=== PATIENT | female | born 1955 | race Caucasian/White ===

== ENCOUNTER → 2016-09-26 | Outpatient (CLI) | payer BC ==
[2016-09-26 12:54] LABS: Blood Urea Nitrogen 13 mg/dL (7-17); Non-African American GFR(MDRD) >60 (>60 ml/min/1.73 sqM)
--- NOTE | 2016-09-26 14:03 | CT ---
EXAMINATION TYPE: CT Chest Abd Pelvis w con DATE OF EXAM: 09/26/2016 1:42 PM COMPARISON: EXAMINATION TYPE: CT Chest Abd Pelvis w con COMPARISON: Previous study dated 07/10/2016 HISTORY: Lung CA CT DLP: 412.8 mGycm Automated exposure control for dose reduction was used. TECHNIQUE: Helical acquisition through the abdomen and pelvis was obtained without oral contrast but following the intravenous administration of 100 mL of Omnipaque 300. The data was formatted in the a xial, coronal and sagittal projections. FINDINGS: There is atelectatic change at both lung bases. Patient's right suprahilar mass lesion is stable in s ize measuring 1.5 x 1.9 cm. There is no significant axillary, internal mammary, mediastinal or hilar adenopathy. There is no pleural or pericardial fluid. Within the abdomen, the liver, spleen and gallbladder are normal. The patient's right adrenal mass has enlarged. Previously it measured 1.8 x 4 cm. Today this measures 2.2 x 4 cm. The left adrenal gland appears normal. Both kidneys demonstrate function and appear morphologically normal. The pancreas is unremarkable. There is worsening periaortic adenopathy. Where there was previously a 7.4 mm lymph node there is now a 2.4 x 2.3 cm lymph node mass obscuring the inferior vena cava. The uterus and ovaries are not visualized. The bladder is unremarkable. There is no significant diverticular change and there is no radiographic evidence of diverticulitis. The appendix is not visualized. Small bowel loops are normal. No free fluid and no free air is seen. There is no significant iliac or inguinal adenopathy. There is extensive facet arthropathy and hypertrophic spondylosis within the spine. There are sclerot ic endplate changes, unchanged from previous. IMPRESSION: 1. Stable right suprahilar mass lesion. 2. Enlarging right adrenal metastasis. 3. Worsening retroperitoneal adenopathy. 4. Significant facet arthropathy the lower lumbar spine with stable endplate sclerotic change.
== END | disposition home or self-care (01) ==
LOC: RADCTMAIN 11:33
PROVIDERS: ATTEND Internal Medicine Hematology & Oncology
DX: C34.90 Malignant neoplasm of unspecified part of unspecified bronchus or lung (principal); C79.71 Secondary malignant neoplasm of right adrenal gland; L98.9 Disorder of the skin and subcutaneous tissue, unspecified
CPT/HCPCS: 82565; 84520; 71260; 74177; 36415; Q9967

== ENCOUNTER → 2016-12-26 | Outpatient (CLI) | payer BC ==
[2016-12-26 13:26] LABS: Blood Urea Nitrogen 17 mg/dL (7-17); Non-African American GFR(MDRD) 57 (>60 ml/min/1.73 sqM)
--- NOTE | 2016-12-26 14:58 | CT ---
EXAMINATION TYPE: CT ChestAbdPelvis w con DATE OF EXAM: 12/26/2016 2:11 PM INDICATION: Lung cancer COMPARISON: NONE CT DLP: 480.10 mGycm CONTRAST: Performed with Oral Contrast and with IV Contrast, patient injected with 100 ml mL of Omnipaque 300. TECHNIQUE: Axial images at 5 mm thick sections. Reconstructed images in the coronal plane. Delayed images through the kidneys. FINDINGS: CT CHEST: Portion of the thyroid visualized is normal. There is a 1.2 x 1.8 cm density at the level of the brachiocephalic vein suspicious for mass. This wa s present previously and is slightly smaller than comparison. Numerous of pneumonitis are in the ben phery of the right midlung. Series 4 image 26. Some superior segment right lower lobe pneumonitis may be present. Series 4 image 29. There is a masslike area within the posterior left lung base measurin g 3.1 x 2.9 cm. Mass and consolidation from lung infiltrate be considered. Follow-up is recommended. Lower lobe consolidation is in the left lower lobe. No enlarged mediastinal or hilar adenopathy is evident. The ascending aorta diameter at the level of the main pulmonary artery is 2.9 cm. The main pulmonary artery diameter at the bifurcation is 2.[address] ABDOMEN: Liver: Normal Spleen: Normal Pancreas: A mid body hypodense masses within the body of the pancreas is estimated at 2.1 x 1.6 cm. S eries 3 image 62. This is not identified September 2016. Adrenal glands: Right adrenal gland is enlarged estimated at 3.8 x 5.2 cm. Gallbladder: Normal Kidneys: No masses are evident. No hydronephrosis is present. No cysts are present. Delayed images were obtained through the kidneys, which remain unremarkable. Aorta: Vascular calcification is within the aorta. Inferior vena cava: Normal. CT PELVIS: Loops of bowel within the abdomen and pelvis are normal. There are loops of bowel which are incom pletely distended or lack oral contrast limiting their evaluation. Appendix: Normal as visualized. Urinary bladder: Normal. Genitourinary structures: Uterus appears normal. Adnexal regions are clear. Osseous structures: No suspicious lytic or sclerotic lesions. There appears to be thickening in the periaortic region extending into the proximal common iliac jennifer ons. Some adenopathy may be present. This appears stable. There is increasing left iliac chain enhanc ing adenopathy. The largest measures approximately 5.4 x 3.2 cm. Left common femoral enhancing adenop athy is enlarged measuring 1.7 cm. Additional smaller enhancing inguinal lymph nodes are present. IMPRESSIONS: 1. Right adrenal mass, enlarging. 2. New hypodense mass within the superior mid body of the pancreas suspicious for neoplasm. 3. Left lower lobe consolidation and/or mass. 3. Continued prominence of periaortic adenopathy. Large left iliac chain, common femoral, and inguina l adenopathy has developed.
== END | disposition home or self-care (01) ==
LOC: RADCTMAIN 12:45
PROVIDERS: ATTEND Internal Medicine Hematology & Oncology
DX: E27.8 Other specified disorders of adrenal gland (principal); K86.89 Other specified diseases of pancreas; R59.0 Localized enlarged lymph nodes; C34.11 Malignant neoplasm of upper lobe, right bronchus or lung
CPT/HCPCS: 82565; 84520; 71260; 74177; 36415; Q9967